=== PATIENT | female | born 1985 | race Caucasian/White ===

== ENCOUNTER 2017-07-13 03:12 | Emergency (ER) | payer OTHER ==
[~2017-07-13] VITALS: Ht 165.1 cm; Wt 59.0 kg
[2017-07-13] MEDS ORDERED: NAPROXEN500 MG PO (11:28)
== END 2017-07-13 12:17 | disposition home or self-care (01) ==
LOC: ER 03:12
DX: R10.2 Pelvic and perineal pain (principal)